=== PATIENT | male | born 1955 | race Caucasian/White ===

== ENCOUNTER → 2017-05-25 | Outpatient (CLI) | payer BC ==
[~2017-05-25] MED LIST: FENTANYL PF 100 MCG/2ML ONE; LIDOCAINE 1%, 20ML ONE; MIDAZOLAM 1 MG/ML, 5ML ONE
== END | disposition home or self-care (01) ==
LOC: ROC 07:50
PROVIDERS: ATTEND Radiology Radiation Oncology
DX: C61 Malignant neoplasm of prostate (principal)
CPT/HCPCS: 55876; 76942; 77332; 99156; A4648; J2250; J3010; J3490

== ENCOUNTER → 2017-05-31 | Outpatient (CLI) | payer BC | END | disposition home or self-care (01) | LOC: CFH 09:30 | PROVIDERS: ATTEND Radiology Radiation Oncology | DX: C61 Malignant neoplasm of prostate (principal) | CPT/HCPCS: 72195 ==

== ENCOUNTER → 2017-09-09 | Outpatient (CLI) | payer BC | END | disposition home or self-care (01) | LOC: ROC 12:56 | PROVIDERS: ATTEND Radiology Radiation Oncology | DX: C61 Malignant neoplasm of prostate (principal) | CPT/HCPCS: 99212; G0463 ==

== ENCOUNTER 2018-09-14 09:36 | Outpatient (CLI) | payer OTHER | END 2018-09-14 23:59 | disposition home or self-care (01) | LOC: ROC 09:36 | PROVIDERS: ATTEND Radiology Radiation Oncology | DX: C61 Malignant neoplasm of prostate (principal) | CPT/HCPCS: 99212; G0463 ==

== ENCOUNTER → 2019-03-20 | Outpatient (CLI) | payer OTHER | END | disposition home or self-care (01) | LOC: ROC 08:09 | PROVIDERS: ATTEND Radiology Radiation Oncology | DX: C61 Malignant neoplasm of prostate (principal) | CPT/HCPCS: 99212; G0463 ==

== ENCOUNTER 2019-11-13 08:55 | Outpatient (CLI) | payer OTHER | END 2019-11-13 23:59 | disposition home or self-care (01) | LOC: ROC 08:55 | PROVIDERS: ATTEND Radiology Radiation Oncology | DX: Z08 Encounter for follow-up examination after completed treatment for malignant neoplasm (principal); C61 Malignant neoplasm of prostate | CPT/HCPCS: 99212; G0463 ==

== ENCOUNTER → 2020-08-12 | Outpatient (CLI) | payer OTHER | END | disposition home or self-care (01) | LOC: ROC 07:47 | PROVIDERS: ATTEND Radiology Radiation Oncology | DX: Z08 Encounter for follow-up examination after completed treatment for malignant neoplasm (principal); Z85.46 Personal history of malignant neoplasm of prostate | CPT/HCPCS: 99212; G0463 ==